=== PATIENT | male | born 1970 | race Caucasian/White ===

== ENCOUNTER 2022-05-09 10:01 | Emergency (ER) | payer OTHER ==
[2022-05-09 11:31] VITALS: TEMP 97.2
[2022-05-09] MEDS ORDERED: LIDOCAINE 1% INJ 10MG/ML (5 ML VIAL-PF) SQ ONE (11:41)
--- NOTE | 2022-05-09 11:50 | ED ---
Wound/Laceration HPI - General Chief Complaint: Wound/Laceration Stated Complaint: Finger infection,Glass in finger Time Seen by Provider: 05/09/22 11:32 Source: patient, RN notes reviewed Mode of arrival: ambulatory Limitations: no limitations - History of Present Illness Initial Comments: This is a 51-year-old male who presents to the emergency department for a piece of glass stuck in the left thumb. Patient states that he was cleaning up glass yesterday and a piece became stuck in his thumb. He does not believe that he removed this. Earlier today, he tried to squeeze the thumb, and states that dark shane drainage started to come out of it. Also states that the thumb is very painful, especially to the touch. Denies any fevers, chills, sore throat, cough, dyspnea, chest pain, palpitations, abdominal pain, nausea, vomiting, diarrhea, back pain, or headaches. Onset/Timin -: days(s) Extremity Location: Left: Hand (left thumb) Context: accidental Associated Symptoms: pain - Related Data Previous Rx's Medication Instructions Recorded Naproxen 500 mg PO Q12HR #30 tab 09/07/15 Cephalexin [Keflex] 500 mg PO Q12HR 7 Days #14 cap 05/09/22 Sulfamethox-Tmp 800-160Mg [Bactrim 1 tab PO Q12HR 7 Days #14 tab 05/09/22 DS 800-160 mg] Allergies Allergy/AdvReac Type Severity Reaction Status Date / Time No Known Allergies Allergy Verified 05/09/22 11:31 Review of Systems ROS Statement: Those systems with pertinent positive or pertinent negative responses have been documented in the HPI. ROS Other: All systems not noted in ROS Statement are negative. Past Medical History Past Medical History: No Reported History History of Any Multi-Drug Resistant Organisms: MRSA Date of last positivie culture/infection: 2009 MDRO Source:: KNEE Past Surgical History: No Surgical Hx Reported Past Psychological History: No Psychological Hx Reported Smoking Status: Current every day smoker Past Alcohol Use History: Rare Past Drug Use History: Marijuana, Prescription Drug Abuse General Exam Limitations: no limitations General appearance: alert, in no apparent distress Head exam: Present: atraumatic, normocephalic, normal inspection Respiratory exam: Present: normal lung sounds bilaterally. Absent: respiratory distress, wheezes, rales, rhonchi, stridor Cardiovascular Exam: Present: regular rate, normal rhythm, normal heart sounds. Absent: systolic murmur, diastolic murmur, rubs, gallop, clicks Neurological exam: Present: alert, oriented X3, CN II-XII intact Psychiatric exam: Present: normal affect, normal mood Skin exam: Present: other (Swelling to the finger pad of the left thumb with a callus hardened area at the very tip.) Course Vital Signs 05/09/22 05/09/22 11:28 14:07 Temperature 97.2 F L Pulse Rate 62 53 L Respiratory 18 14 Rate Blood Pressure 141/87 139/90 O2 Sat by Pulse 99 100 Oximetry Procedures - Incision & Drainage Consent Obtained: verbal consent Indication: abscess Site: hand (left thumb) Size (cm): 2 Anesthetic Used: lidocaine 1% Amount (mLs): 2 I&D Cleaning Method: Alcohol Wipe Sterile Field Used?: Yes Scalpel Used: #11 Needle Aspiration Performed?: No Irrigation Performed?: Yes I&D Drainage Obtained: Pus Culture Obtained?: Yes Medical Decision Making - Medical Decision Making This is a 51-year-old male who presents to the emergency department for a left thumb abscess. X-ray obtained, this did not reveal any signs of foreign body. I&D was then performed and a copious amount of purulent drainage was expressed. Wound cultures obtained. I thoroughly examined the abscess and was unable to find any residual foreign bodies such as glass. The abscess was not deep enough to warrant packing. Tetanus status was updated. Prescriptions for Bactrim and Keflex sent to the pharmacy. Instructed him to soak the thumb in warm water several times a day for the next 3-5 days. Return precautions reviewed in depth, the patient is instructed to return to the emergency department with any new, worsening, or concerning symptoms. Patient verbalized understanding. This case was discussed in detail with the attending ED physician. Presentation, findings, and treatment plan discussed in detail as well. - Radiology Data Radiology results: report reviewed, image reviewed Disposition Clinical Impression: Abscess of left thumb Disposition: HOME SELF-CARE Instructions (If sedation given, give patient instructions): Abscess Incision and Drainage (ED), Abscess (ED) Additional Instructions: Return to the emergency department with any new, worsening, or concerning symptoms. Take the Bactrim and Keflex as prescribed. Continue to apply warm compresses. Take ibuprofen and Tylenol as needed for pain. Soak the thumb in warm water for 15-20 minutes at a time 3-5 times daily for the next 5-7 days. Prescriptions: Sulfamethox-Tmp 800-160Mg [Bactrim DS 800-160 mg] 1 tab PO Q12HR 7 Days #14 tab Cephalexin [Keflex] 500 mg PO Q12HR 7 Days #14 cap Is patient prescribed a controlled substance at d/c from ED?: No Referrals: None,Stated [Primary Care Provider] - 1-2 days
--- NOTE | 2022-05-09 12:31 | XR ---
EXAMINATION TYPE: XR finger LT DATE OF EXAM: 05/09/2022 COMPARISON: None HISTORY: Glass within the thumb TECHNIQUE: 3 view left thumb FINDINGS: There is prominent soft tissue over the pattern of. No radiopaque foreign body is identifie d. Follow up exams can be performed as clinically indicated. IMPRESSION: 1. Soft tissue prominence over the pad of the thumb. Underlying radiopaque foreign body is not ident ified.
[2022-05-09] MEDS ORDERED: DIPH,PERTUS(ACELL)TETVAC-LF 0.5 ML VIAL IM ONE (13:17)
[2022-05-09 14:08] VITALS: BP 139/90; PULSE 53; RESP 14
== END 2022-05-09 14:08 | disposition home or self-care (01) ==
LOC: EC 10:01
DX: L02.512 Cutaneous abscess of left hand (principal); Z23 Encounter for immunization; F17.200 Nicotine dependence, unspecified, uncomplicated; F12.90 Cannabis use, unspecified, uncomplicated; Z72.89 Other problems related to lifestyle; Y28.0XXA Contact with sharp glass, undetermined intent, initial encounter; Y93.89 Activity, other specified
CPT/HCPCS: 87070; 87205; 87075; 73140; 90715; 99283; 26010; 90471; J2001